=== PATIENT | male | born 1985 | race Caucasian/White ===

== ENCOUNTER 2017-01-10 01:47 | Emergency (ER) | payer SELFPAY ==
[2017-01-10 02:42] VITALS: BP 157/85
== END 2017-01-10 02:42 | disposition home or self-care (01) ==
LOC: ED 01:47
DX: S80.812A Abrasion, left lower leg, initial encounter (principal); V49.9XXA Car occupant (driver) (passenger) injured in unspecified traffic accident, initial encounter; Y93.89 Activity, other specified; Y99.8 Other external cause status; Y92.89 Other specified places as the place of occurrence of the external cause

== ENCOUNTER 2020-04-22 19:14 | Emergency (ER) | payer OTHER ==
[2020-04-22 20:34] LABS: microscopic required? NO
[2020-04-22 21:16] LABS: urine erythrocyte NEGATIVE (NEGATIVE)
[2020-04-22 21:20] LABS: BASOPHIL % 0.4 % (0-2); PLATELET COUNT 152 x10^3mcL (130-400); RED CELL DISTRIBUTION WIDTH 16.2 % (11.5-14.5)
[2020-04-22 21:35] LABS: AMPHETAMINE QUAL UR NONE DETECTED (See below)
[2020-04-22 21:39] LABS: CALCIUM 7.7 mg/dL (8.5-10.1); CARBON DIOXIDE 25.8 mmol/L (21-32); CHLORIDE SERUM 104 mmol/L (98-107); CREATININE SERUM 0.7 mg/dL (0.7-1.3); GFR1 > 60 mL/min; GLUCOSE SERUM 106 mg/dL (74-106); POTASSIUM SERUM 3.6 mmol/L (3.5-5.1); SODIUM SERUM 138 mmol/L (136-145)
[2020-04-22 21:50] LABS: ALKALINE PHOSPHATASE 191 U/L (46-116); ALT/SGPT 25 U/L (16-63); AST/SGOT 27 U/L (15-37); BILIRUBIN TOTAL 0.28 mg/dL (0.20-1.00); TOTAL PROTEIN, SERUM 7.7 g/dL (6.4-8.2)
[2020-04-22 21:54] LABS: ALBUMIN 3.3 g/dL (3.4-5.0)
[2020-04-22 22:27] VITALS: BP 154/82
== END 2020-04-22 22:27 | disposition home or self-care (01) ==
LOC: ED 19:14
PROVIDERS: Emergency Medicine
DX: F10.10 Alcohol abuse, uncomplicated (principal); F14.10 Cocaine abuse, uncomplicated; R00.0 Tachycardia, unspecified; R03.0 Elevated blood-pressure reading, without diagnosis of hypertension; Y90.8 Blood alcohol level of 240 mg/100 ml or more
CPT/HCPCS: G0480; J2060; J7030; Q0092